=== PATIENT | female | born 1935 | race Caucasian/White ===

== ENCOUNTER 2017-01-08 20:23 | Inpatient (IN) | payer MEDICARE, BC ==
--- NOTE | 2017-01-08 20:37 | ERNOTE ---
Hip Pain HPI - Narrative Date of Service: 01/08/17 - General Chief Complaints:: right hip pain after a fall Time Seen by Provider: 01/08/17 20:28 Source: patient Exam Limitations: no limitations - History of Present Illness Initial Comments: This is an 81-year-old female who comes to the emergency department by EMS after a ground-level fall. She is complaining of severe right hip pain and inability to walk or bear weight. The patient says that she was holding the door open for her , who uses a walker, to go through. He started to lose balance and fell backwards into her and they both fell to the ground. She did not hit her head. She did not lose consciousness. She had the immediate severe pain within her right hip. She was unable to get up. The patient had eaten already this evening. The patient denies any numbness or tingling. She denies any other complaints. She has not fallen like this before. - Immun/Allergies/Home Medications Allergies/Adverse Reactions: Allergies Allergy/AdvReac Type Severity Reaction Status Date / Time codeine Allergy Intermediate THROAT Verified 01/08/17 20:34 SWELLS UP Home Medications: Ambulatory Orders Medication Instructions Recorded Calcium Carbonate/Vitamin D3 1 each PO BID 11/23/15 [Calcium 500+D Tablet Chew] Ibuprofen [Motrin] 200 mg PO Q4H PRN 11/23/15 Levothyroxine Sodium [Synthroid] 50 mcg PO DAILY 11/23/15 Review of Systems - Review of Systems Constitutional: Present: no symptoms reported EENTM: Present: no symptoms reported Respiratory: Present: no symptoms reported Cardiology: Present: no symptoms reported Gastrointestinal/Abdominal: Present: no symptoms reported Genitourinary: Present: no symptoms reported Musculoskeletal: Present: joint pain, muscle pain Skin: Present: no symptoms reported Neurological: Present: no symptoms reported Endocrine: Present: no symptoms reported Hematologic/Lymphatic: Present: no symptoms reported All Other Systems: All systems neg except as marked - Patient's Past Medical History Patient History - Medical: Cataracts, Hypothyroidism, Kidney stone, Osteoporosis Patient History - Cardiac/Respiratory: Hyperlipidemia Patient History - Cancer: Skin Patient History - Surgical Procedures: Cataracts, Other Patient History - Other: None - Family History Father Family History - Medical: , No pertinent hx Family History - Cardiac/Respiratory: CVA/Stroke Mother Family History - Medical: , No pertinent hx Family History - Cardiac/Respiratory: CHF - Social History Living Situations: spouse Abuse History: No History of abuse Psych History: No pertinent hx Alcohol Use: none Drug Use: none Pain Exam - Physical Exam General Appearance: Present: WD/WN, no apparent distress Eyes, Ears, Nose, Throat Exam: Present: normal ENT inspection, pharynx normal Neck Exam: Present: non-tender, full range of motion, normal inspection Cardiovascular/Respiratory: Present: regular rate, rhythm, normal peripheral pulses, no JVD, normal breath sounds, no respiratory distress Gastrointestinal/Abdominal: Present: normal bowel sounds Back Exam: Present: other - unable to assess secondary to patient's injury. Extremity Exam: Present: other - patient has significant tenderness to the right hip area. Palpation of the patient's hip is extremely painful. It attempted motion anywhere at the hip is painful. Even bending at the knee can be quite painful. Distal neurovascularly intact. Skin Exam: Present: normal color, warm/dry, no cyanosis ED Progress - VITAL SIGNS Vital Signs - Last Taken Temp 36.4 C L 11/30/15 14:17 Pulse Resp BP 138/67 11/30/15 14:49 Pulse Ox - X-Ray X-Ray #2 XRAY: hip X-Ray Interpretation: Interp. by me X-Ray Comments: Right hip intertrochanteric fracture X-Ray #1 XRAY: chest X-Ray Interpretation: Interp. by me X-Ray Comments: No acute cardiopulmonary disease X-Ray #3 XRAY: pelvis X-Ray Interpretation: Interp. by me X-Ray Comments: Previously noted hip fracture no pelvis fracture X-Ray #4 XRAY: femur X-Ray Interpretation: Interp. by me X-Ray Comments: There is an intertrochanteric right fracture. There is no hip fracture. No distal fracture. Departure - Departure Clinical Impression: Hip fracture, right Disposition: [facility] Condition: Stable
[2017-01-08] MEDS ORDERED: MORPHINE SULFATE 4 MG/ML SYRG ONE (21:01)
[2017-01-08] MEDS ORDERED: MORPHINE SULFATE 4 MG/ML SYRG IV ONE (21:01)
[2017-01-08] MEDS ORDERED: NORMAL SALINE 1,000 ML IV PRN (23:31)
[2017-01-09] MEDS: MORPHINE SULFATE 2 MG/ML DISP.SYRIN IV PRN ×2 (00:16→11:42)
--- NOTE | 2017-01-09 00:17 | HP ---
Chief Complaint - Chief Complaint Date of Service: 01/08/17 Time of Service: 23:10 Chief Complaint: Right hip pain, inability to walk History of Present Illness: 81 years old female adm to the hospital from ER with report of right hip pain and inability to walk. Pt stated while at home, she was assisting her with the door. He lost his balance and fell onto the patient. She was unable to get off the floor. EMS was called and she was assisted and brought to the hospital. Pt denies head injury, lost of consciousness, shortness of breath, palpitation,dizziness before and after incident. PMH significant for hypothyroidism, renal calculi, osteoporosis, hypercholesteremia and cataracts. Ortho service consulted and plan for follow up in the morning. Pt is medically appropriate for potential planned procedure. Plan of care discussed with pt she verbalized understanding and agree. - Patient's Past Medical History Patient History - Medical: Cataracts, Hypothyroidism, Kidney stone, Osteoporosis Patient History - Cardiac/Respiratory: Hyperlipidemia Patient History - Cancer: Skin Patient History - Surgical Procedures: Cataracts, Other - breast biopsy,hernia repair,lithotripsy,ureteroscopy, cystoscopy Patient History - Other: None - Family History Father Family History - Medical: , No pertinent hx Family History - Cardiac/Respiratory: CVA/Stroke Family History - Cancer: No pertinent family hx Mother Family History - Medical: , No pertinent hx Family History - Cardiac/Respiratory: CHF Family History - Cancer: No pertinent family hx - Social History Living Situations: spouse Abuse History: No History of abuse Psych History: No pertinent hx Smoking Status: Former smoker Have you smoked in the past 12 months: No Do you dip or chew tobacco: No Alcohol Use: none Drug Use: none - Immunizations Immunizations Up to Date: Yes Hx Pneumococcal Vaccination: No History of Influenza Vaccine: Yes Review Of Systems (GEN) - Review of Systems Generalized/Overall Review: Present: No Symptoms Reported EENTM: Present: No Symptoms Reported Respiratory: Present: No Symptoms Reported Cardiac: Present: No Symptoms Reported Abdominal: Present: No Symptoms Reported Genitourinary: Present: No Symptoms Reported Musculoskeletal: Present: Other - right hip pain Neurological: Present: No Symptoms Reported Skin: Present: No Symptoms Reported Endocrine: Present: No Symptoms Reported Allergies/Adverse Reactions: Allergies Allergy/AdvReac Type Severity Reaction Status Date / Time codeine Allergy Intermediate THROAT Verified 01/08/17 20:34 SWELLS UP Home Medications: HOME MEDICATIONS Ibuprofen [Motrin] 200 mg PO Q4H PRN 11/23/15 [Last Taken Unknown] Levothyroxine Sodium [Synthroid] 50 mcg PO DAILY 11/23/15 [Last Taken Unknown] Exam - Exam Vital Signs: Vital Signs - Last Taken Temp 36.4 C L 01/08/17 23:00 Pulse 64 01/08/17 23:00 Resp 18 01/08/17 23:00 BP 134/58 01/08/17 23:00 Pulse Ox 97 01/08/17 23:00 Constitutional: Present: Alert, Oriented x3, Cooperative, Elderly ENT Exam: Present: normal ENT inspection Eye Exam: bilateral eye: normal inspection, PERRL Neck: Present: full range of motion Back Exam: Present: no CVA tenderness Breasts: Present: Exam deferred Respiratory: Present: normal breath sounds Cardiovascular/Chest: Present: normal peripheral pulses, regular rate, rhythm, no chest tenderness Peripheral Pulses: dorsalis-pedis (R): 3+, dorsalis-pedis (L): 3+ Abdomen: Present: Normal bowel sounds, soft, nontender, nondistended /Rectal: Present: Exam deferred Extremity: Present: normal range of motion, non-tender, normal inspection Skin Exam: Present: normal color, warm/dry Neurologic: Present: oriented x 3 Appearance: Present: appropriate appearance Eye contact: Present: cooperative, good eye contact Thoughts: Present: normal thought pattern Assessment/Plan - Narrative Narrative: Right hip intertrochanteric fracture- s/p mechanical fall while at home seen on X-ray pelvis; Right acute displaced and foreshortened right intertrochanteric femur fracture. Surgical servicing to follow pre-op labs pending EKG-NSR Initiated IVF while NPO Morphine for pain control Fuchs to gravity and discontinue when pt is up ambulating. Hypothyroidism May resume oral home dose of synthroid Hyperlipidemia- stable Code status: Full DVT ppx: SCD and surgical service to address post op GI ppx: Pepcid - Assessment/Plan (1) Hip fracture, right Problem: Chronic Qualifiers: Encounter type: initial encounter (2) Hypothyroidism Problem: Chronic (3) Osteoporosis Problem: Chronic (4) Hyperlipidemia Problem: Chronic
[2017-01-09 06:16] LABS: Hematocrit 35.2 % (37.0-47.0); Hemoglobin 11.7 gm/dL (12.5-16.0); Mean Corpuscular Hemoglobin 32.2 pg (27-31); Mean Corpuscular Hgb Conc 33.2 g/dl (32-36); Neutrophil # 7.1 K/mm3 (1.3-6.0); Neutrophil % 81.6 % (42-75.0); Platelet Count 156 K/mm3 (150-450); Red Blood Count 3.63 M/mm3 (4.2-5.4); Red Cell Distribution Width 12.9 % (11.5-14.0); White Blood Count 8.7 K/mm3 (4.0-10.5)
[2017-01-09 06:58] LABS: INR 1.06 INR (0.90-1.10)
[2017-01-09] MEDS: LEVOTHYROXINE SODIUM 50 MCG TABLET PO SCH (07:00)
[2017-01-09 07:49] LABS: Albumin * 2.9 gm/dl (3.4-5.0); BUN/Creatinine Ratio 18.8 (9.0-21.6); Bilirubin, Total 0.8 mg/dL (0.0-1.1); Ca. Corrected For Albumin 9.3 mg/dL (8.4-10.2); Calcium * 8.7 mg/dL (7.9-10.9); Carbon Dioxide 26.3 mmol/L (24-32.6); Potassium 4.3 mmol/L (3.4-4.6); Total Protein 5.5 gm/dL (6.2-8.2)
--- NOTE | 2017-01-09 08:27 | CONS ---
HPI - General Date of Service: 01/09/17 Narrative: Devora is an 81 yo F who sustained a R intertrochanteric hip fracture yesterday evening after a mechanical fall at home. She was helping her , who she cares for, out on their deck when he fell and pulled her down with him. She was initially seen in the ED where plain films revealed the above injury. She denies hitting her head or any LOC. She was admitted to the hospital under Medicine service. Upon evaluation this am, she reports that her pain is well controlled if she doesn't move. She denies numbness or tingling. Denies any other musculoskeletal pain. - History of Present Illness Allergies/Adverse Reactions: Allergies codeine Allergy (Intermediate, Verified 01/08/17 20:34) THROAT SWELLS UP Home Medications: Home Medications Medication Instructions Recorded Last Taken Ibuprofen [Motrin] 200 mg PO Q4H PRN 11/23/15 Unknown Levothyroxine Sodium [Synthroid] 50 mcg PO DAILY 11/23/15 Unknown - Patient's Past Medical History Patient History - Medical: Cataracts, Hypothyroidism, Kidney stone, Osteoporosis Patient History - Cardiac/Respiratory: Hyperlipidemia Patient History - Cancer: Skin Patient History - Surgical Procedures: Cataracts, Other - breast biopsy,hernia repair,lithotripsy,ureteroscopy, cystoscopy Patient History - Other: None - Family History Father Family History - Medical: , No pertinent hx Family History - Cardiac/Respiratory: CVA/Stroke Family History - Cancer: No pertinent family hx Mother Family History - Medical: , No pertinent hx Family History - Cardiac/Respiratory: CHF Family History - Cancer: No pertinent family hx - Social History Living Situations: spouse Abuse History: No History of abuse Psych History: No pertinent hx Smoking Status: Former smoker Have you smoked in the past 12 months: No Do you dip or chew tobacco: No Alcohol Use: none Drug Use: none - Immunizations Immunizations Up to Date: Yes Hx Pneumococcal Vaccination: No History of Influenza Vaccine: Yes Procedures APPL/ADMIN OF AN ADHESION BARRIER SUBSTANCE (01/06/12) CATARAC PHACOEMULS/ASPIR (10/03/13) EXCIS KNEE SEMILUN CARTL (01/28/06) FLUOROSCOPY OF LEFT KIDNEY, URETER AND BLADDER (11/30/15) INCISIONAL HERNIA REPAIR (06/09/11) INSERT LENS AT CATAR EXT (10/03/13) LAPAROSCOP REMOVE OVARIES/TUBES (06/04/11) OTHER OPEN INCISIONAL HERNIA REPAIR WITH GRAFT OR PROSTHESIS (01/06/12) OTHER REPAIR OF KNEE (01/28/06) REMOV URETERAL DRAIN (02/24/14) RETROGRADE PYELOGRAM (04/09/11) URETERAL CATHETERIZATION (02/10/14) Medications - Medications Current Medications: Current Medications Sodium Chloride (Sodium Chloride 0.9%) 1,000 mls @ 30 mls/hr IV .Q24H PRN PRN Reason: HYDRATION Stop: 02/07/17 23:32 Last Admin: 01/09/17 00:15 Dose: 30 mls/hr Morphine Sulfate (Morphine Sulfate) 2 mg IV Q6H PRN PRN Reason: Pain Stop: 02/08/17 00:02 Last Admin: 01/09/17 00:16 Dose: 2 mg Physical Examination - Exam Narrative: Gen: A&Ox3, NAD Resp: breathing non-labored on RA MSK: RLE--> TTP about hip, pain with any attempted ROM, able to flex and extend all toes, SILT, DP palpable Radiology: Plain films demonstrate a R displaced intertrochanteric femur fracture. Vital Signs: Vital Signs - Last Taken Temp 37.0 C 01/09/17 07:25 Pulse 70 01/09/17 07:25 Resp 18 01/09/17 07:25 BP 121/55 01/09/17 07:25 Pulse Ox 95 01/09/17 07:25 O2 Oxygen Delivery Method Room Air - Results and Findings: Narrative: 81 yo F w/ R intertrochanteric femur fracture. - Discussed treatment options in detail with the patient today. Given her age, activity level, and good health, I recommend surgical fixation with cephalomedullary nailing. I discussed the risks in detail with her including, but not limited to, infection, bleeding, malunion/nonunion, implant failure, persistent pain, stiffness, leg length discrepancy, DVT/PE, and . After discussion, she wishes to proceed with surgery. Informed consent obtained. - NPO, chen, bedrest pre-op - 1 gm Ancef pre-op - continue Medicine co-management - dispo: Continue inpatient care post-op for progressive mobility with plan for d/c to SNF when stable. Lab/Microbiology results last 24 hrs: Abnormal/Pending Laboratory Last 24 HRS 01/09/17 01/09/17 06:22 06:22 RBC 3.63 L Hgb 11.7 L Hct 35.2 L MCH 32.2 H MPV 11.0 H Neutrophils % 81.6 H Lymphocytes % 7.7 L Monocytes % 10.3 H Neutrophils # 7.1 H Lymphocytes # 0.7 L Chloride 108 H Random Glucose 116 H ALT 17 L Total Protein 5.5 L Albumin 2.9 L - Assessments/Findings (1) Hip fracture, right Problem: Chronic Qualifiers: Encounter type: initial encounter
--- NOTE | 2017-01-09 08:47 | PN ---
Subjective - Date and Time Seen Date: 01/09/17 Time: 08:43 Subjective Narrative: Patient denies CP, SOB, palpitaions, F/C, cough/dysuria. she does have right hip pain. Had surgeries in the past w/o anesthesia or bleeding complications. Objective - Review of Systems Generalized/Overall Review: Denies: Weakness, Chills, Fever EENTM: Reports: No Symptoms Reported Respiratory: Denies: Cough, Shortness of Breath, Orthopnea Cardiac: Denies: Chest Pain, Edema, Palpitations Abdominal: Denies: Nausea, Vomiting Genitourinary Symptoms: Denies: Urgency, Frequency, Dysuria Musculoskeletal Complaints: Reports: Joint Pain - Vitals Vitals: Last Vital Signs Temp 37.0 C 01/09/17 07:25 Pulse 70 01/09/17 07:25 Resp 18 01/09/17 07:25 BP 121/55 01/09/17 07:25 Pulse Ox 95 01/09/17 07:25 - Abnormal Lab Findings Abnormal Lab Findings: Abnormal Lab Results 01/09/17 01/09/17 Range/Units 06:22 06:22 RBC 3.63 L (4.2-5.4) M/mm3 Hgb 11.7 L (12.5-16.0) gm/dL Hct 35.2 L (37.0-47.0) % MCH 32.2 H (27-31) pg MPV 11.0 H (6.0-9.5) fl Neutrophils % 81.6 H (42-75.0) % Lymphocytes % 7.7 L (20-51) % Monocytes % 10.3 H (0.0-9) % Neutrophils # 7.1 H (1.3-6.0) K/mm3 Lymphocytes # 0.7 L (1.5-3.5) k/mm3 Chloride 108 H (97-106) mmol/L Random Glucose 116 H (70-110) mg/dL ALT 17 L (19-67) U/L Total Protein 5.5 L (6.2-8.2) gm/dL Albumin 2.9 L (3.4-5.0) gm/dl - Exam Constitutional: Present: Alert, Oriented x3, Cooperative ENT Exam: Present: hearing grossly normal Neck: Present: supple Breasts: Present: Exam deferred Respiratory: Present: decreased breath sounds, No rales, No wheezing Cardiovascular/Chest: Present: regular rate, rhythm, no JVD, no murmur Abdomen: Present: Normal bowel sounds, soft, nontender, nondistended Extremity: Present: no pedal edema, no calf tenderness Cauti Physician Documentation - Urinary Catheter Management Urethral (Fuchs) Date of Insertion: 01/08/17 Time of Insertion: 22:23 Assessment/Plan - Problems/Diagnosis (1) Hip fracture, right Problem: Chronic Qualifiers: Encounter type: initial encounter Narrative: for ORIF (2) Hyperlipidemia Problem: Chronic (3) Hypothyroidism Problem: Chronic
[2017-01-09] MEDS ORDERED: ceFAZolin SODIUM 1 GM in DEXTROSE 5 % IN WATER 100 ML IV PRN ×2 (12:00)
[2017-01-09] MEDS ORDERED: NORMAL SALINE 400 ML IV ONE (15:05)
[2017-01-09] MEDS ORDERED: RINGER'S SOLUTION,LACTATED 1,000 ML IV ONE ×2 (15:57→16:00)
--- NOTE | 2017-01-09 17:21 | OR ---
Operative Report - Dictated Report Narrative: Date: 01/09/2017 Surgeon: Edenilson Dacosta M.D. Personnel Assistant: Bran Page PA-C Preoperative diagnosis: Right Intertrochanteric femur fracture Postoperative diagnosis: Right Intertrochanteric femur fracture Operations and procedures: 1. Closed reduction, cephalo-medullary fixation right intertrochanteric femur fracture 2. Intraoperative interpretation of radiographs Anesthesia: Spinal Specimens: None Estimated blood loss: 250 Milliliters Retained implants: [employer] Trigen InterTAN 130 degree size 11.5 mm by 36 centimeter nail with 95 millimeter lag screw and 90 millimeter compression screw , with distal interlocking screws x2 Complications: None Indications for procedure: Devora is a 81-year-old female who injured the right leg after falling at home on her deck while trying to catch her who also felt. They were admitted to the hospital after being evaluated in the emergency department. Once the medical provider felt that they were stable for surgical treatment, the risks and benefits alternatives were discussed. The risks of , blood clots, bleeding, infection, nerve/tendon/blood vessel injury, malunion, nonunion , failure of implants, painful implants, arthrosis, and need for additional procedures were discussed. The extremity was marked and consent was obtained on the floor. Procedure: After marking the operative extremity on the floor, the patient was taken to the operating room. A timeout was performed. IV antibiotics consisting of 1 g of Ancef was administered. A spinal anesthetic was induced by anesthesia, and the patient was then placed onto a fracture table with a well-padded perineal post. The nonoperative leg was placed in a well-padded leg lei in lithotomy position with an SCD on the leg. The operative leg was placed in a well-padded traction boot. Longitudinal traction, internal rotation, flexion, and adduction were utilized in order to reduce the fracture. Preliminary images were attained utilizing C-arm in both the AP and lateral views. This confirmed that we had obtained adequate visualization of the fracture as well as reduction. Next the hip was then prepped and draped in a standard sterile fashion. Next the guidewire was placed percutaneously proximal to the greater trochanter to winsome a starting point at the tip of the greater trochanter centered on the lateral view. This was driven into the greater trochanter and passed down to the level below the lesser trochanter. A scalpel was utilized in order to dissect down to the greater trochanter in order to lace the soft tissue protector down to bone. The entry reamer was then reamed down the proximal femur to the level of the lesser trochanter. A ball-tipped guidewire was then advanced through our starting point and down to the distal femur past the proximal pole of the patella. We measured our nail length at 360 mm. A series of reamers were then passed down the ball-tipped guidewire to a final reamer reamer diameter of 13 mm with good chatter. The above nail was then selected and advanced over the ball-tipped guidewire and impacted into place. The outrigger was utilized in order to confirm the appropriate depth of the nail. Using the alignment device on the outrigger, a fernie incision was made over the lateral femur. Sharp dissection was carried through the iliotibial band down to the proximal femur. The guidewire was was placed into the femoral head and a center center position on AP and lateral views. The tip apex distance less than 25 mm combined was obtained. Once we felt that we had placed a guidewire in the appropriate position, it was measured. Next the compression screw site was drilled to the lateral femoral cortex. This was then drilled down to the appropriate depth again confirming that were within the confines of the bone. The derotational bar was then placed and the lag screw was drilled. The lag screw was then secured in place seating fully ensuring that we were within the confines of the bone. The compression screw was then inserted allowing for compression while releasing the traction on the leg. Using C-arm this was visualized to allow for compression across the fracture site. Once we felt we had adequately stabilized the intertrochanteric fracture, the distal interlocking screws were placed using a perfect circles technique. We utilized both the static and dynamic interlocking holes. The nail was secured allowing for controlled compression and the outrigger was removed. The wounds were then thoroughly irrigated. Final images were obtained. The hip was placed through range of motion and showed no crepitance. The deep fascia was closed with 0 Vicryl, the subcutaneous tissue with 3-0 Vicryl, and the skin was closed with augustin. Sterile dressings of Xeroform, 4 x 4, ABD, and tegaderm were applied. All sponge, sharp, and instrument counts were correct prior to closing the wounds. The patient was then awoken and transferred to the postanesthesia care unit in stable condition.
[2017-01-09] MEDS ORDERED: MAGNESIUM HYDROXIDE 30 ML UDC PO PRN (17:23)
[2017-01-09] MEDS ORDERED: diphenhydrAMINE HCL 50 MG/ML VIAL IV PRN (17:23)
[2017-01-09] MEDS ORDERED: PROMETHAZINE HCL 5 MG in DEXTROSE 5 % IN WATER 50 ML IV PRN ×2 (17:23)
[2017-01-09] MEDS ORDERED: MAG HYDROX/ALUMINUM HYD/SIMETH 30 ML UDC PO PRN (17:23)
[2017-01-09] MEDS ORDERED: ACETAMINOPHEN 500 MG TABLET PO PRN (17:23)
[2017-01-09] MEDS ORDERED: oxyCODONE HCL/ACETAMINOPHEN 1 TAB TABLET PO PRN (17:23)
[2017-01-09] MEDS ORDERED: ONDANSETRON HCL/PF 2 MG/ML VIAL IV PRN (17:23)
[2017-01-09] MEDS: DEXTROSE 5%-LACTATED RINGERS 1,000 ML IV PRN (19:41)
[2017-01-09] MEDS: SENNOSIDES/DOCUSATE SODIUM 1 TAB TABLET PO SCH (20:35)
[2017-01-09] MEDS: ceFAZolin SODIUM 1 GM in DEXTROSE 5 % IN WATER 100 ML IV SCH ×2 (22:20)
[2017-01-10] MEDS: MORPHINE SULFATE 2 MG/ML DISP.SYRIN IV PRN ×3 (00:19→06:19)
[2017-01-10 05:54] LABS: Hematocrit 31.2 % (37.0-47.0); Hemoglobin 10.3 gm/dL (12.5-16.0); Mean Cell Volume 97.5 fl (78-100); Mean Corpuscular Hemoglobin 32.2 pg (27-31); Mean Platelet Volume 10.9 fl (6.0-9.5); Platelet Count 143 K/mm3 (150-450); Red Cell Distribution Width 13.1 % (11.5-14.0); White Blood Count 8.5 K/mm3 (4.0-10.5)
[2017-01-10 06:03] LABS: Anion Gap 11.5 mmol/L (6.8-13.8); BUN/Creatinine Ratio 13.7 (9.0-21.6); Calcium * 8.3 mg/dL (7.9-10.9); Carbon Dioxide 26.7 mmol/L (24-32.6); Estimated Creat Clear 48.6; Potassium 4.2 mmol/L (3.4-4.6)
[2017-01-10] MEDS: DEXTROSE 5%-LACTATED RINGERS 1,000 ML IV PRN (06:15)
[2017-01-10] MEDS: ceFAZolin SODIUM 1 GM in DEXTROSE 5 % IN WATER 100 ML IV SCH ×4 (06:19→15:45)
[2017-01-10] MEDS: LEVOTHYROXINE SODIUM 50 MCG TABLET PO SCH (06:20)
--- NOTE | 2017-01-10 07:02 | PN ---
Subjective - Date and Time Seen Date: 01/10/17 Subjective Narrative: No events overnight. Confused last evening, cleared this am. Pain well controlled. Objective - Vitals Vitals: Last Vital Signs Temp 36.8 C 01/10/17 06:00 Pulse 78 01/10/17 06:00 Resp 16 01/10/17 06:00 BP 117/62 01/10/17 06:00 Pulse Ox 93 01/10/17 06:35 - Abnormal Lab Findings Abnormal Lab Findings: Abnormal Lab Results 01/09/17 01/10/17 01/10/17 Range/Units 06:22 05:45 05:45 RBC 3.20 L (4.2-5.4) M/mm3 Hgb 10.3 L (12.5-16.0) gm/dL Hct 31.2 L (37.0-47.0) % MCH 32.2 H (27-31) pg Plt Count 143 L (150-450) K/mm3 MPV 10.9 H (6.0-9.5) fl Chloride 108 H (97-106) mmol/L Random Glucose 116 H 155 H D (70-110) mg/dL ALT 17 L (19-67) U/L Total Protein 5.5 L (6.2-8.2) gm/dL Albumin 2.9 L (3.4-5.0) gm/dl - Exam Exam Narrative: Gen: A&Ox3, NAD Resp: breathing non-labored on RA MSK: RLE--> dressings c/d/i, mild swelling, minimal TTP, SILT, 5/5 EHL/FHL/DF/PF , cap refill brisk Cauti Physician Documentation - Urinary Catheter Management Urethral (Chen) Date of Insertion: 01/08/17 Time of Insertion: 22:23 Assessment/Plan Plan Narrative: 81 yo F w/ R IT femur fx s/p cephalomedullary nailing, POD #1. - WBAT, ROM as tolerated - reg diet - oral pain meds - Hgb 10.3, monitor - PT/OT - DVT ppx: lovenox/teds/SCDs - chen out once mobilizing - continue care per Medicine team - dispo: continue inpatient care with plan for d/c to SNF - Problems/Diagnosis (1) Hip fracture, right Problem: Chronic Qualifiers: Encounter type: initial encounter
--- NOTE | 2017-01-10 07:19 | PN ---
Subjective - Date and Time Seen Date: 01/10/17 Time: 07:18 Subjective Narrative: Patient POD # 1. Afebrile. No complaints. Objective - Review of Systems Generalized/Overall Review: Denies: Weakness, Chills, Fever EENTM: Reports: No Symptoms Reported Respiratory: Denies: Cough, Shortness of Breath, Orthopnea Cardiac: Denies: Chest Pain, Edema, Palpitations Abdominal: Denies: Nausea, Vomiting Genitourinary Symptoms: Denies: Urgency, Frequency Musculoskeletal Complaints: Reports: Joint Pain - Vitals Vitals: Last Vital Signs Temp 36.8 C 01/10/17 06:00 Pulse 78 01/10/17 06:00 Resp 16 01/10/17 06:00 BP 117/62 01/10/17 06:00 Pulse Ox 93 01/10/17 06:35 - Abnormal Lab Findings Abnormal Lab Findings: Abnormal Lab Results 01/09/17 01/10/17 01/10/17 Range/Units 06:22 05:45 05:45 RBC 3.20 L (4.2-5.4) M/mm3 Hgb 10.3 L (12.5-16.0) gm/dL Hct 31.2 L (37.0-47.0) % MCH 32.2 H (27-31) pg Plt Count 143 L (150-450) K/mm3 MPV 10.9 H (6.0-9.5) fl Chloride 108 H (97-106) mmol/L Random Glucose 116 H 155 H D (70-110) mg/dL ALT 17 L (19-67) U/L Total Protein 5.5 L (6.2-8.2) gm/dL Albumin 2.9 L (3.4-5.0) gm/dl - Exam Constitutional: Present: Alert, Oriented x3, Cooperative ENT Exam: Present: hearing grossly normal Neck: Present: supple Respiratory: Present: normal breath sounds, No rales, No wheezing Cardiovascular/Chest: Present: regular rate, rhythm, no JVD, no murmur Abdomen: Present: soft, nontender, nondistended Extremity: Present: no pedal edema, no calf tenderness Cauti Physician Documentation - Urinary Catheter Management Urethral (Fuchs) Date of Insertion: 01/08/17 Time of Insertion: 22:23 Assessment/Plan - Problems/Diagnosis (1) Hip fracture, right Problem: Chronic Qualifiers: Encounter type: initial encounter Narrative: S/P CRIF. POD # 1. afebrile. continue with PT/OT (2) Hyperlipidemia Problem: Chronic (3) Hypothyroidism Problem: Chronic
[2017-01-10] MEDS: oxyCODONE HCL/ACETAMINOPHEN 1 TAB TABLET PO PRN ×2 (08:27→15:50)
[2017-01-10] MEDS: IBUPROFEN 200 MG TABLET PO PRN (13:35)
[2017-01-10] MEDS: ENOXAPARIN SODIUM 40 MG/0.4 ML SYRG SC SCH (15:47)
[2017-01-10] MEDS: SENNOSIDES/DOCUSATE SODIUM 1 TAB TABLET PO SCH (20:10)
[2017-01-11] MEDS: oxyCODONE HCL/ACETAMINOPHEN 1 TAB TABLET PO PRN ×5 (02:27→23:09)
[2017-01-11] MEDS: IBUPROFEN 200 MG TABLET PO PRN (04:42)
[2017-01-11 06:13] LABS: Hematocrit 26.4 % (37.0-47.0); Hemoglobin 8.8 gm/dL (12.5-16.0); Mean Cell Volume 96.4 fl (78-100); Mean Corpuscular Hemoglobin 32.1 pg (27-31); Mean Corpuscular Hgb Conc 33.3 g/dl (32-36); Mean Platelet Volume 10.5 fl (6.0-9.5); Platelet Count 123 K/mm3 (150-450); Red Blood Count 2.74 M/mm3 (4.2-5.4); Red Cell Distribution Width 12.9 % (11.5-14.0); White Blood Count 8.1 K/mm3 (4.0-10.5)
[2017-01-11 06:26] LABS: Anion Gap 10.3 mmol/L (6.8-13.8); BUN/Creatinine Ratio 13.9 (9.0-21.6); Calcium * 8.7 mg/dL (7.9-10.9); Carbon Dioxide 26.4 mmol/L (24-32.6); Estimated Creat Clear 44.9; Potassium 3.7 mmol/L (3.4-4.6)
[2017-01-11] MEDS: LEVOTHYROXINE SODIUM 50 MCG TABLET PO SCH (06:30)
--- NOTE | 2017-01-11 08:10 | PN ---
Subjective - Date and Time Seen Date: 01/11/17 Time: 08:06 Subjective Narrative: Patient working with PT. Afebrile. Tmax 37. Objective - Review of Systems Generalized/Overall Review: Denies: Weakness, Chills, Fever EENTM: Reports: No Symptoms Reported Respiratory: Denies: Cough, Shortness of Breath, Orthopnea Cardiac: Denies: Chest Pain, Edema, Palpitations Abdominal: Denies: Nausea, Vomiting Genitourinary Symptoms: Denies: Urgency, Frequency Musculoskeletal Complaints: Reports: Joint Pain - Vitals Vitals: Last Vital Signs Temp 37.0 C 01/11/17 06:12 Pulse 79 01/11/17 06:12 Resp 18 01/11/17 06:12 BP 119/63 01/11/17 06:12 Pulse Ox 93 01/11/17 06:12 - Abnormal Lab Findings Abnormal Lab Findings: Abnormal Lab Results 01/11/17 01/11/17 Range/Units 06:10 06:10 RBC 2.74 L (4.2-5.4) M/mm3 Hgb 8.8 L (12.5-16.0) gm/dL Hct 26.4 L (37.0-47.0) % MCH 32.1 H (27-31) pg Plt Count 123 L (150-450) K/mm3 MPV 10.5 H (6.0-9.5) fl Chloride 107 H (97-106) mmol/L - Exam Constitutional: Present: Alert, Oriented x3, Cooperative ENT Exam: Present: hearing grossly normal Neck: Present: supple Breasts: Present: Exam deferred Respiratory: Present: normal breath sounds, No rales, No wheezing Cardiovascular/Chest: Present: regular rate, rhythm, no JVD, no murmur Abdomen: Present: Normal bowel sounds, soft, nontender, nondistended Extremity: Present: no pedal edema, no calf tenderness Cauti Physician Documentation - Urinary Catheter Management Urethral (Fuchs) Date of Insertion: 01/08/17 Time of Insertion: 22:23 Date of Removal: 01/10/17 Time of Removal: 10:20 Assessment/Plan - Problems/Diagnosis (1) Hip fracture, right Problem: Chronic Qualifiers: Encounter type: initial encounter Narrative: POD # 2. (2) Acute blood loss anemia Problem: Acute Narrative: will monitor (3) Hyperlipidemia Problem: Chronic (4) Hypothyroidism Problem: Chronic
[2017-01-11] MEDS: FERROUS SULFATE 325 MG TABLET PO SCH (08:44)
--- NOTE | 2017-01-11 11:13 | PN ---
Subjective - Date and Time Seen Date: 01/11/17 Subjective Narrative: No events overnight. Pain well controlled this am. Making progress with PT. Objective - Vitals Vitals: Last Vital Signs Temp 36.4 C L 01/11/17 10:34 Pulse 97 01/11/17 10:34 Resp 18 01/11/17 10:34 BP 122/62 01/11/17 10:34 Pulse Ox 96 01/11/17 10:34 - Abnormal Lab Findings Abnormal Lab Findings: Abnormal Lab Results 01/11/17 01/11/17 Range/Units 06:10 06:10 RBC 2.74 L (4.2-5.4) M/mm3 Hgb 8.8 L (12.5-16.0) gm/dL Hct 26.4 L (37.0-47.0) % MCH 32.1 H (27-31) pg Plt Count 123 L (150-450) K/mm3 MPV 10.5 H (6.0-9.5) fl Chloride 107 H (97-106) mmol/L - Exam Exam Narrative: Gen: A&Ox3, NAD Resp: breathing non-labored on RA MSK: RLE--> dressings c/d/i, mild swelling, minimal TTP, SILT, 5/5 EHL/FHL/DF/PF , cap refill brisk Cauti Physician Documentation - Urinary Catheter Management Urethral (Fuchs) Date of Insertion: 01/08/17 Time of Insertion: 22:23 Date of Removal: 01/10/17 Time of Removal: 10:20 Assessment/Plan Plan Narrative: 81 yo F w/ R IT femur fx s/p cephalomedullary nailing, POD #2. - WBAT, ROM as tolerated - reg diet - oral pain meds - Hgb 8.8, monitor - PT/OT - DVT ppx: lovenox/teds/SCDs - continue care per Medicine team - dispo: continue inpatient care with plan for d/c to SNF possibly tomorrow - Problems/Diagnosis (1) Hip fracture, right Problem: Chronic Qualifiers: Encounter type: initial encounter
[2017-01-11] MEDS: ENOXAPARIN SODIUM 40 MG/0.4 ML SYRG SC SCH (15:39)
[2017-01-11] MEDS: SENNOSIDES/DOCUSATE SODIUM 1 TAB TABLET PO SCH (20:23)
[2017-01-12] MEDS: LEVOTHYROXINE SODIUM 50 MCG TABLET PO SCH (06:24)
--- NOTE | 2017-01-12 08:48 | PN ---
Progess Note - Interim Narrative: No acute events. Pain well controlled. Dressing changed. Pt reports she has been able to ambulate with walker around her room. Pt is tolerating oral diet. Exam revealed mild ttp over greater trochanter, ecchymosis along lateral right thigh, dorsal pedis pulse 2+, EHL, FHL, PF, DF 5/5, no numbness or tingling. 81 yo F w/ R IT femur fx s/p cephalomedullary nailing, POD #3. - WBAT, ROM as tolerated - reg diet - oral pain meds - Hgb 8.8, monitor - PT/OT - DVT ppx: lovenox for first 10 days post-op, begin ASA 325mg PO daily on day # 11 post-op for 6 weeks/teds/SCDs - continue care per Medicine team - dispo: d/c pt to SNF per medicine team, f/u in outpatient orthopedic clinic at 2 weeks post-op 01/12/17 08:42
[2017-01-12] MEDS: FERROUS SULFATE 325 MG TABLET PO SCH (09:08)
[2017-01-12] MEDS ORDERED: MINERAL OIL 1 ENEMA BTL RC ONE (09:14)
--- NOTE | 2017-01-12 10:21 | DS ---
(1) Hip fracture, right Problem: Acute Qualifiers: Encounter type: initial encounter (2) Acute blood loss anemia Problem: Acute (3) Hyperlipidemia Problem: Chronic Qualifiers: Hyperlipidemia type: mixed hyperlipidemia Qualified Code(s): E78.2 - Mixed hyperlipidemia (4) Hypothyroidism Problem: Chronic Qualifiers: Hypothyroidism type: acquired Qualified Code(s): E03.9 - Hypothyroidism, unspecified Description of Stay: Devora Romero, is a 81 years old female adm to the hospital from ER on with report of right hip pain and inability to walk. Pt stated while at home, she was assisting her with the door. He lost his balance and fell onto the patient. She was unable to get off the floor. EMS was called and she was assisted and brought to the hospital. Pt denies head injury, lost of consciousness, shortness of breath, palpitation,dizziness before and after incident. PMH significant for hypothyroidism, renal calculi, osteoporosis, hypercholesteremia and cataracts. Ortho service consulted and she underwent CRIF with cephalomedulaary nail fixation the following morning. She has been doing PT/OT postoperatively but needs more strengthening exercises before going home. She is being transferred to [facility] for more PT/OT. Her allergy list says she gets swelling of her throat with codeine/morphine. Procedures Performed: see notes below List Procedures: Closed reduction with intramedullary nail fixation. Discharge Disposition: [facility] Disposition: [facility] Condition: Stable Discharge Activity: Activity as tolerated Discharge Level of Care:: SNF - Correction Correction Therapy: Physicial Therapy, Occupation Therapy Referrals: Jeffrey Hernandez DO [Primary Care Provider] - Additional Patient Instructions (free text): Follow up with Dr. Dacosta 01/23 at 9:[address] Hernandez 01/27 at 10:00 Prescriptions (Any new or edited meds): Acetaminophen [Tylenol] 1,000 mg PO Q6H PRN #60 tablet PRN Reason: Mild Pain Aspirin [Aspirin EC] 325 mg PO DAILY #30 tablet. Enoxaparin Sodium [Lovenox] 40 mg SC Q24H #7 disp.syrin Ferrous Sulfate 325 mg PO DAILY #30 tablet Sennosides/Docusate Sodium [Senokot-S] 2 tab PO HS #30 tablet Complete Home Medications List: Complete Home Medication List: Ibuprofen [Motrin] 200 mg PO Q4H PRN 11/23/15 Levothyroxine Sodium [Synthroid] 50 mcg PO DAILY 11/23/15 Acetaminophen [Tylenol] 1,000 mg PO Q6H PRN #60 tablet 01/12/17 Aspirin [Aspirin EC] 325 mg PO DAILY #30 tablet. 01/12/17 Enoxaparin Sodium [Lovenox] 40 mg SC Q24H #7 disp.syrin 01/12/17 Ferrous Sulfate 325 mg PO DAILY #30 tablet 01/12/17 Sennosides/Docusate Sodium [Senokot-S] 2 tab PO HS #30 tablet 01/12/17
[2017-01-12] MEDS: IBUPROFEN 200 MG TABLET PO PRN (10:56)
[2017-01-12 11:01] VITALS: BP 146/68
== END 2017-01-12 13:25 | DRG 481 ==
LOC: ER 20:23 → MS 21:53 → OBSVTOIN 23:40
PROVIDERS: ADMIT Nurse Practitioner; ATTEND Family Medicine
PROC: 0QH634Z Insertion of Internal Fixation Device into Right Upper Femur, Percutaneous Approach (ICD-10-PCS; principal; 2017-01-09 13:45)
DX: S72.141A Displaced intertrochanteric fracture of right femur, initial encounter for closed fracture (principal); D62 Acute posthemorrhagic anemia; W03.XXXA Other fall on same level due to collision with another person, initial encounter; Y92.008 Other place in unspecified non-institutional (private) residence as the place of occurrence of the external cause; E03.9 Hypothyroidism, unspecified; E78.5 Hyperlipidemia, unspecified; Z85.828 Personal history of other malignant neoplasm of skin

== ENCOUNTER 2017-02-24 12:13 | Day surgery (SDC) | payer MEDICARE, BC ==
[~2017-02-24 12:13] MED LIST: RINGER'S SOLUTION,LACTATED 1,000 ML IV PRN; ceFAZolin SODIUM 1 GM VIAL IV PRN
[2017-02-24] MEDS ORDERED: BUPIVACAINE HCL/EPINEPHRINE 50 ML VIAL IJ ONE (14:50)
[2017-02-24 16:42] VITALS: BP 118/77
--- NOTE | 2017-02-27 13:13 | OR ---
Operative Report - Dictated Report Narrative: Date: 02/24/2017 Surgeon: Edenilson Dacosta M.D. 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 Subsequently she began noting lateral hip pain and 6 week postop x-rays demonstrated backing out of the secondary compression screw. I counseled her that this would need to be removed. The risks of , blood clots, bleeding, infection, nerve/tendon/blood vessel injury, malunion, nonunion, failure of implants, painful implants, arthrosis, and need for additional procedures were discussed. The extremity was marked and consent was obtained on the floor. Procedure: After marking the operative extremity on the floor, the patient was taken to the operating room. A timeout was performed. IV antibiotics consisting of 1 g of Ancef were administered. A MAC anesthetic was induced by anesthesia, and the patient was then placed in supine position on a beanbag with the right hip bumped up. The right lower extremity was then prepped and draped in usual sterile fashion. We used the previous incision for insertion of the lag and compression screws from her initial surgery. This was approximately 2-1/2 cm in length over the lateral thigh. This was pre-anesthetized with 0.5% Marcaine with epinephrine. Blunt dissection was carried down through subcutaneous tissue and the head of the compression screw was immediately identified. This was backed all the way out and removed. The screw was inspected for any defects but appear normal. At this point the hip was taken through a range of motion on live fluoroscopy to ensure stability of our fixation and fluoroscopic imaging demonstrated stable fixation of the fracture with smooth hip range of motion. Final images were obtained documenting removal of the compression screw. The wound was copiously irrigated with normal saline and subcutaneous tissue was closed with 3-0 Vicryl, and the skin was closed with 4-0 nylon. Sterile dressings of Xeroform, 4 x 4s, and tegaderm were applied. All sponge, sharp, and instrument counts were correct prior to closing the wounds. The patient was then awoken and transferred to the postanesthesia care unit in stable condition.
== END 2017-02-24 12:14 | disposition home or self-care (01) ==
LOC: AMB 12:13 → EDSTATUS 17:15
PROVIDERS: ATTEND Orthopaedic Surgery
PROC: 0QP604Z Removal of Internal Fixation Device from Right Upper Femur, Open Approach (ICD-10-PCS; principal; 2017-02-24 17:15)
DX: T84.194A Other mechanical complication of internal fixation device of right femur, initial encounter (principal); E78.00 Pure hypercholesterolemia, unspecified; E03.9 Hypothyroidism, unspecified; M81.0 Age-related osteoporosis without current pathological fracture; Z87.891 Personal history of nicotine dependence; Z68.27 Body mass index [BMI] 27.0-27.9, adult